=== PATIENT | male | born 1965 | race Caucasian/White ===

== ENCOUNTER 2022-10-14 02:33 | Emergency (ER) | payer BC ==
[~2022-10-14] VITALS: Ht 182.9 cm; Wt 134.6 kg
[2022-10-14 03:28] LABS: Urine WBC None Seen /hpf (0 - 3)
[2022-10-14 03:54] LABS: Urine Bacteria NONE SEEN /hpf (None Seen); Urine Blood Negative /uL (Negative); Urine Specific Gravity 1.019 (1.001-1.035)
[2022-10-14 04:24] LABS: Basophils # (auto) 0 10 ^3/uL (0-0.2); Basophils % (auto) 0.4 % (0.0-2.0); Eosinophils # (auto) 0.2 10 ^3/uL (0-0.8); Hemoglobin 16.1 g/dL (13.5-17.5); Lymphocytes # (auto) 2.2 10 ^3/uL (0.4-5.4); Lymphocytes % (auto) 29.7 % (10.0-50.0); Mean Corpuscular Hemoglobin 31.3 pg (28.0-32.0); Mean Corpuscular Hgb Conc. 34.9 g/dL (32.0-36.0); Mean Corpuscular Volume 89.6 fL (80.0-100.0); Monocytes # (auto) 0.7 10 ^3/uL (0-1.3); Monocytes % (auto) 9.1 % (0.0-12.0); Neutrophils # (auto) 4.2 10 ^3/uL (1.6-8.6); Neutrophils % (auto) 57.8 % (37.0-80.0); Red Blood Cells 5.13 10^6/uL (4.5-5.90); Red Cell Distribution Width 13.4 % (11.8-14.3); White Blood Cell 7.3 10^3/uL (4.4-10.8)
[2022-10-14 04:43] LABS: Albumin 3.9 g/dL (3.4-5.0); BUN/Creatinine Ratio 21.6 (10.0-20.0); Potassium 4.2 mmol/L (3.5-5.1)
[2022-10-14 04:45] LABS: Bilirubin, Total 0.4 mg/dL (0.2-1.0); Total Protein 7.2 g/dL (6.4-8.2)
[2022-10-14] MEDS ORDERED: CIPR-173 PO (06:45)
[2022-10-14] MEDS ORDERED: METR500T PO (06:45)
[2022-10-14] MEDS ORDERED: PERCOT PO (06:45)
[2022-10-14] MEDS ORDERED: ONDA-144 PO (06:45)
[2022-10-14] MEDS ORDERED: metroNIDAZOLE 500 MG TAB PO ONE (06:45)
[2022-10-14] MEDS ORDERED: CIPROFLOXACIN HCL 500 MG TAB PO ONE (06:45)
[2022-10-14 07:35] VITALS: BP 140/74
== END 2022-10-14 07:41 | disposition home or self-care (01) ==
LOC: ER 02:33
DX: K57.30 Diverticulosis of large intestine without perforation or abscess without bleeding (principal); I10 Essential (primary) hypertension
CPT/HCPCS: 36415; 71045; 74176; 80053; 81001; 83690; 85025; 93005